=== PATIENT | male | born 1980 | race Caucasian/White ===

== ENCOUNTER → 2020-07-04 | Outpatient (CLI) | payer OTHER ==
--- NOTE | 2020-07-04 16:49 | RAD ---
EXAM: Left knee, 2 views. HISTORY: Arthritis. COMPARISON: None. FINDINGS: 2 views of the left knee are obtained. There is a small left knee effusion. There is enthes opathy along the superior patella. There is no fracture, dislocation or subluxation. IMPRESSION: 1. Small left knee effusion. 2. No acute osseous finding. Electronically signed by: Ginna Boogie MD (07/04/2020 4:47 PM) [id number]
== END ==
LOC: RAD 16:29
PROVIDERS: ATTEND Physician Assistant
DX: M17.12 Unilateral primary osteoarthritis, left knee (principal); M25.475 Effusion, left foot
CPT/HCPCS: 73560